=== PATIENT | male | born 1955 | race Caucasian/White ===

== ENCOUNTER 2017-03-27 05:34 | Outpatient (CLI) | payer BC, OTHER ==
[~2017-03-27] VITALS: Ht 177.8 cm; Wt 104.3 kg
[2017-03-27] MEDS ORDERED: RED600TA PO (12:20)
[2017-03-27] MEDS ORDERED: ASCO500T6 PO (12:20)
[2017-03-27] MEDS ORDERED: ASPI-999 PO (12:20)
[2017-03-27] MEDS ORDERED: OMG1KC PO (12:20)
[2017-03-27] MEDS ORDERED: MULT1CAP27 PO (12:20)
[2017-03-27] MEDS ORDERED: AMLO5TAB2 PO (12:20)
== END 2017-03-27 12:42 ==
LOC: PREOP 05:34
PROVIDERS: ATTEND Surgery
DX: Z01.818 Encounter for other preprocedural examination (principal); Z12.11 Encounter for screening for malignant neoplasm of colon

== ENCOUNTER 2017-03-28 09:09 | Day surgery (SDC) | payer BC, OTHER ==
[~2017-03-28] VITALS: Ht 177.8 cm; Wt 104.3 kg
[~2017-03-28 09:09] MED LIST: AMLO5TAB2 PO; ASCO500T6 PO; ASPI-999 PO; MULT1CAP27 PO; OMG1KC PO; RED600TA PO
[2017-03-28 09:27] VITALS: BP 145/103
[2017-03-28] MEDS ORDERED: NALOXONE 0.4 MG/ML 1 ML (NARCAN) VIAL IVP PRN (09:30)
[2017-03-28] MEDS ORDERED: FLUMAZENIL (ROMAZICON) 0.1 MG/ML 5 ML VIAL INJ PRN (09:30)
[2017-03-28] MEDS ORDERED: NS IV 500 ML 500 ML IV PRN (09:30)
[2017-03-28] MEDS ORDERED: fentaNYL INJECTION 100 MCG/2 ML AMP ONE ×2 (11:09)
[2017-03-28] MEDS ORDERED: MIDAZOLAM 2 MG/2 ML (VERSED) VIAL ONE ×4 (11:10)
--- NOTE | 2017-03-28 11:14 | Conscious Sedation/ASA ---
Conscious Sedation Pre-Proced ASA Class: 2 Airway Mallampati Classification: ([place] appropriate class) I. II. III, IV Lungs Heart ASA score ASA 1: a normal healthy patient ASA 2: a patient with a mild systemic disease (mid diabetes, controlled hypertension, obesity ASA 3: a patient with a severe systemic disease that limits activity (angina , COPD, prior Myocardial infarction) ASA 4: a patient with an incapacitating disease that is a constant threat to life (CHF, renal failure) ASA 5: a moribund patient not expected to survive 24 hrs. (ruptured aneurysm) ASA 6: a declared brain patient whose organs are being harvested. For emergent operations, add the letter E after the classification Grade 2 Sedation Plan: Discussed options with patient/fam Note The patient is an appropriate candidate to undergo the planned procedure, sedation, and anesthesia. The patient immediately re-assessed prior to indication. MAK WATSON MD March 28, 2017 11:14 am
[2017-03-28] MEDS: fentaNYL INJECTION 100 MCG/2 ML AMP IVP PRN ×2 (11:17→11:25)
[2017-03-28] MEDS: MIDAZOLAM 2 MG/2 ML (VERSED) VIAL IVP PRN ×2 (11:19→11:23)
--- NOTE | 2017-03-28 11:37 | Endoscopy Procedure Report ---
Endoscopy Report Date: March 28, 2017 Preoperative Diagnosis: sscreening. Family history Study Performed: Colonoscopy Procedure Instrument: Colonoscope Endo Procedure/Findings Findings 1.: Diverticulosis Recommendations: Recommendations: 1.: Colonscopy in 5 years Copy Copies To 1: DAVIS CRUZ XAVIER M MD March 28, 2017 11:37 am
--- NOTE | 2017-03-28 11:38 | Discharge Inst-Simple/Standard ---
Discharge Inst-Standard Discharge Medications New, Converted or Re-Newed RX: Other Patient Instructions/Follow Up Plan of Care/Instructions/FU: rrepeat colonoscopy in 5 years Activity as Tolerated: Yes Discharge Diet: No Restrictions MAK WATSON MD March 28, 2017 11:38 am
[2017-03-28 12:00] VITALS: BP 131/69
[2017-03-28 12:22] VITALS: BP 128/79
[2017-03-28 12:26] VITALS: BP 128/79
--- NOTE | 2017-03-29 05:27 | OPERATIVE REPORT ---
DATE OF SERVICE: 03/28/2017 PROCEDURE: Screening colonoscopy. SURGEON: Mak Watson MD INDICATION OF PROCEDURE: This gentleman came in for a screening colonoscopy. He had reported a family history of colon cancer in his brother. Informed consent was obtained after reviewing the procedure in detail. DESCRIPTION OF PROCEDURE: He was placed in left lateral decubitus position and his vital signs were monitored. Conscious sedation was achieved using Versed and fentanyl. Digital rectal examination was unremarkable. The colonoscope was then introduced through the rectum and advanced all the way up to the cecum. The scope was then withdrawn slowly and the mucosa examined in a systematic fashion. FINDINGS: Very few scattered sigmoid diverticula. No polyps were found. He tolerated the procedure well and was taken back to the nursing area in a stable condition. IMPRESSION: Screening colonoscopy. No polyps. Positive family history. Recommend repeating in 5 years. Job ID: [id number] DocumentID: [id number] Dictated Date: 03/28/2017 11:33:18 Chute Man Date: 03/29/2017 05:00:58 Dictated By: MAK WATSON MD MTDD
== END 2017-03-28 11:28 | disposition home or self-care (01) ==
LOC: ENDO 09:09
PROVIDERS: ATTEND Surgery
DX: Z12.11 Encounter for screening for malignant neoplasm of colon (principal); Z80.0 Family history of malignant neoplasm of digestive organs; K57.30 Diverticulosis of large intestine without perforation or abscess without bleeding

== ENCOUNTER → 2018-04-08 | Outpatient (CLI) | payer BC ==
--- NOTE | 2018-04-08 10:25 | Diagnostic Imaging Report ---
Clinical indication: Patient with carotid artery stenosis. Comparison: None Exam: Real-time carotid Doppler duplex imaging is performed bilaterally. Peak systolic velocity, ICA/CCA peak systolic ratio, spectral analysis, and vascular morphology are studied. Findings: ARTERY VELOCITY Right Left CCA 1.05 m/s 0.89 m/s ICA 1.05 m/s 1.79 m/s ECA 1.21 m/s 0.97 m/s ICA/CCA 1.0 2.0 VERT.ART Antegrade Antegrade There is prominent area of heterogeneous plaque with associated vascular narrowing involving the proximal and mid left ICA. There are also elevated velocities involving the proximal and mid cervical left ICA measuring 1.57 m/s and 1.79 m/s, respectively. Impression: 1: There is atherosclerotic disease of the proximal and mid cervical left ICA with elevated velocities suggesting 50-69% stenosis. 2: The remainder of the carotid arteries show no significant stenosis. Dictated by: Dictated on workstation # [id number]
== END ==
LOC: RAD 08:36
PROVIDERS: ATTEND Internal Medicine
DX: I65.23 Occlusion and stenosis of bilateral carotid arteries (principal)
CPT/HCPCS: 93880

== ENCOUNTER → 2018-05-29 | Outpatient (CLI) | payer BC ==
[~2018-05-29] VITALS: Ht 177.8 cm; Wt 104.3 kg
[~2018-05-29] MED LIST changes: +CATHETER FLUSH 10 ML SYR IV PRN
[2018-05-29 08:18] VITALS: BP 146/73
--- NOTE | 2018-05-29 13:21 | STRESS TEST ---
DATE OF SERVICE: 05/29/2018 RESTING AND POST EXERCISE TECHNETIUM-99M TETROFOSMIN SPECT CT IMAGING ORDERING PHYSICIAN: Dr. Pickett. PRIMARY PHYSICIAN: Dr. Pickett. CLINICAL DIAGNOSIS: Chest discomfort. Baseline images were carried out after injection of 10.29 mCi of technetium-99m Tetrofosmin. Subsequently, exercise was carried out on a treadmill under Dr. Pickett's supervision and the electrocardiographic and the exercise portion of the study is reported separately by Dr Pickett. After the patient has attained target heart rate, 32.2 mCi of technetium-99m Tetrofosmin were injected and the exercise was continued for another minute. Review of images at rest and following stress indicates a small basal inferior perfusion defect that is transient. Gated images show normal global left ventricular systolic function with normal regional wall motion. No significant regional wall motion abnormalities were identified. Left ventricular ejection fraction is 70%. Left ventricular end-diastolic volume is 65 mL. TID is absent (0.97). CONCLUSIONS: 1. This study is indicative of a small amount of basal inferior ischemia. 2. No significant regional wall motion abnormality is seen. 3. Global left ventricular systolic function is normal with an ejection fraction of 70%. Job ID: [id number] DocumentID: [id number] Dictated Date: 05/29/2018 09:52:14 Court Commissioner Date: 05/29/2018 13:20:19 Dictated By: TOVA ALMARAZ MD, MA, FACP, FACC, MTDD
== END ==
LOC: CARD 06:34
PROVIDERS: ATTEND Internal Medicine
DX: R07.9 Chest pain, unspecified (principal)
CPT/HCPCS: 78452; 93017

== ENCOUNTER 2020-08-17 08:24 | Inpatient (IN) | payer BC ==
[2020-08-17] VITALS (7 sets, daily range): BP systolic 124–196; BP diastolic 74–135
[~2020-08-17] VITALS: Ht 180 cm; Wt 97.0 kg
[~2020-08-17 08:24] MED LIST changes: -AMLO5TAB2 PO; +AMLO5TAB9 PO; +ASCO500T17 PO; -ASCO500T6 PO; -CATHETER FLUSH 10 ML SYR IV PRN
[2020-08-17] MEDS ORDERED: LACTATED RINGERS 1,000 ML IV SCH (08:44)
[2020-08-17] MEDS ORDERED: ACETAMINOPHEN 325 MG TABLET PO ONE (08:45)
[2020-08-17] MEDS ORDERED: ONDANSETRON 4 MG/2 ML (SDV) Z0FRAN IV ONE (08:45)
--- NOTE | 2020-08-17 08:51 | ED Respiratory ---
General Chief Complaint: Respiratory Problems Stated Complaint: COVID+ Source: patient Exam Limitations: no limitations History of Present Illness Date Seen by Provider: Aug 17, 2020 Time Seen by Provider: 08:30 Initial Comments The patient presents to the ER by private conveyance with chief complaint of intractable nausea and vomiting worse over the past several days, starting a week ago. He was tested positive for COVID 19 7 days ago and has been symptomatic for 10 days. He has sick contacts. He has not seen his doctor nor started anything for nausea or symptoms. He did get started on Decadron and has been using Tylenol and Motrin PM. He does not have a history of diabetes, coronary disease, history of blood clots, hyperlipidemia or smoking. He does dip and follows with Dr. Cruz occasionally for his hypertension. He says he was able to eat yesterday and keep it down for some time but has not been able to keep fluids down very well. His oxygen sats were 91-94% last week when he was at the clinic. He does not require oxygen at baseline nor does he have a history of COPD/asthma. He denies pain, dysuria diarrhea or constipation. Allergies and Home Medications Allergies Coded Allergies: No Known Drug Allergies (Verified , 03/28/17) Home Medications Amlodipine Besylate 5 Mg Tablet, 5 MG PO DAILY, (Reported) Ascorbic Acid 500 Mg Tablet, 500 MG PO DAILY, (Reported) Aspirin 81 Mg Tab.chew, 81 MG PO DAILY, (Reported) Multivitamin 1 Each Capsule, 1 EACH PO DAILY, (Reported) [place] 3 Polyunsat Fatty Acids 1,000 Mg Cap, 1,000 MG PO DAILY, (Reported) Red Yeast Rice 600 Mg Tablet, 600 MG PO DAILY, (Reported) Patient Home Medication List Home Medication List Reviewed: Yes Review of Systems Review of Systems Constitutional: chills, fever, malaise, weakness EENTM: No hearing loss, No ear pain Respiratory: cough, phlegm (clear,), short of breath; No wheezing Cardiovascular: No chest pain, No Hx of Intervention, No palpitations, No syncope, No vascular heart diseas Gastrointestinal: No abdominal pain, No constipation, No diarrhea; nausea, vomiting Genitourinary: No discharge, No dysuria Musculoskeletal: No back pain, No joint pain All Other Systems Reviewed Negative Unless Noted: Yes Past Vyiycfc-Vtayex-Wnshnp Hx Patient Social History Alcohol Use: Occasionally Uses Recreational Drug Use: No Smoking Status: Never a Smoker Type Used: Smokeless Tobacco Recent Hopitalizations: No Seasonal Allergies Seasonal Allergies: No Past Medical History Surgeries: Yes (ING hernia) Respiratory: No Cardiac: Yes Hypertension Neurological: No Genitourinary: No Gastrointestinal: No Musculoskeletal: No Endocrine: No HEENT: No Cancer: No Psychosocial: No Integumentary: No Blood Disorders: No Physical Exam Vital Signs - First Documented 08/17/20 08/17/20 08:40 08:43 Temp 36.5 Pulse 74 Resp 18 B/P (MAP) 135/86 (102) Pulse Ox 95 O2 Delivery Nasal Cannula O2 Flow Rate 2.00 Capillary Refill : Height: 5'10.00" Weight: 230lbs. 0.0oz. [id number]; 33.0 BMI Method: General Appearance: WD/WN, moderate distress Eyes: Bilateral Eye Normal Inspection, Bilateral Eye PERRL, Bilateral Eye EOMI HEENT: PERRL/EOMI, normal ENT inspection; No pharynx normal (Mildly dry mucosa) Neck: full range of motion, normal inspection Respiratory: no accessory muscle use, respiratory distress (mild to moderate with respiratory rate between 25 and 30. Oxygen saturations 91-96% at rest), wheezing (faint expiratory right side) Cardiovascular: normal peripheral pulses, regular rate, rhythm Gastrointestinal: normal bowel sounds, non tender, soft Extremities: non-tender, normal inspection, normal capillary refill Neurologic/Psychiatric: alert, oriented x 3 Skin: normal color, warm/dry Focused Exam Sepsis Stage: Sepsis Possible Source: Pulmonary Lactate Level 08/17/20 09:00: Lactic Acid Level 2.54*H Time of Focused Exam: 10:02 Respiratory: Lungs Clear, Normal Breath Sounds, No Accessory Muscle Use, Respiratory Distress (mild, 4 L by nasal cannula keeping his sats in the mid to upper 90s.) Cardiovascular: Regular Rate, Rhythm, No Edema, Normal Peripheral Pulses Capillary Refill: Less Than 3 Seconds Peripheral Pulses: 2+ Radial Pulses (R), 2+ Radial Pulses (L) Skin: normal color, warm/dry, cyanosis Lactic Acid Level Laboratory Tests Test 08/17/20 09:00 Lactic Acid Level 2.54 MMOL/L (0.50-2.00) *H Within 3hrs of presentation: Admin fluids (continue a dosing of 1 L secondary to COVID-19 status), Admin ABX, Blood cultures prior to ABX's, Focus exam, Lactate level Progress/Results/Core Measures Suspected Sepsis SIRS Temperature: Pulse: Respiratory Rate: Laboratory Tests 08/17/20 08:40: White Blood Count 17.7H Blood Pressure / Mean: 08/17/20 09:00: Lactic Acid Level 2.54*H Laboratory Tests 08/17/20 08:40: Creatinine 1.31H, INR Comment 1.0, Platelet Count 412H, Total Bilirubin 0.8 Results/Orders Lab Results Laboratory Tests Test 08/17/20 08:40 08/17/20 09:00 Range/Units White Blood Count 17.7 H 4.3-11.0 10^3/uL Red Blood Count 4.85 4.30-5.52 10^6/uL Hemoglobin 15.2 13.3-17.7 g/dL Hematocrit 45 40-54 % Mean Corpuscular Volume 92 80-99 fL Mean Corpuscular Hemoglobin 31 25-34 pg Mean Corpuscular Hemoglobin Concent 34 32-36 g/dL Red Cell Distribution Width 12.8 10.0-14.5 % Platelet Count 412 H 130-400 10^3/uL Mean Platelet Volume 11.0 9.0-12.2 fL Immature Granulocyte % (Auto) 3 % Neutrophils (%) (Auto) 73 42-75 % Lymphocytes (%) (Auto) 17 12-44 % Monocytes (%) (Auto) 7 0-12 % Eosinophils (%) (Auto) 0 0-10 % Basophils (%) (Auto) 0 0-10 % Neutrophils # (Auto) 12.9 H 1.8-7.8 10^3/uL Lymphocytes # (Auto) 3.0 1.0-4.0 10^3/uL Monocytes # (Auto) 1.2 H 0.0-1.0 10^3/uL Eosinophils # (Auto) 0.0 0.0-0.3 10^3/uL Basophils # (Auto) 0.0 0.0-0.1 10^3/uL Immature Granulocyte # (Auto) 0.6 H 0.0-0.1 10^3/uL Neutrophils % (Manual) 69 % Lymphocytes % (Manual) 23 % Monocytes % (Manual) 7 % Eosinophils % (Manual) 1 % Basophils % (Manual) 0 % Band Neutrophils 0 % Blood Morphology Comment NORMAL Prothrombin Time 13.1 12.2-14.7 SEC INR Comment 1.0 0.8-1.4 Activated Partial Thromboplast Time 25 24-35 SEC D-Dimer 2.44 H 0.00-0.49 UG/ML Blood Gas Puncture Site RR Blood Gas Patient Temperature 97.8 Arterial Blood pH 7.62 *H 7.37-7.43 Arterial Blood Partial Pressure CO2 14 *L 35-45 MMHG Arterial Blood Partial Pressure O2 76 L 79-93 MMHG Arterial Blood HCO3 15 *L 23-27 MMOL/L Arterial Blood Total CO2 15.4 L 21.0-31.0 MMOL/L Arterial Blood Oxygen Saturation 97 94-100 % Arterial Blood Base Excess -6.4 L -2.5-2.5 MMOL/L Alexis Test YES-POS Blood Gas Ventilator Setting NO Blood Gas Inspired Oxygen RA Sodium Level 138 135-145 MMOL/L Potassium Level 4.1 3.6-5.0 MMOL/L Chloride Level 103 98-107 MMOL/L Carbon Dioxide Level 20 L 21-32 MMOL/L Anion Gap 15 H 5-14 MMOL/L Blood Urea Nitrogen 25 H 7-18 MG/DL Creatinine 1.31 H 0.60-1.30 MG/DL Estimat Glomerular Filtration Rate 55 BUN/Creatinine Ratio 19 Glucose Level 102 70-105 MG/DL Calcium Level 9.3 8.5-10.1 MG/DL Corrected Calcium 9.2 8.5-10.1 MG/DL Phosphorus Level 2.2 L 2.3-4.7 MG/DL Magnesium Level 2.2 1.6-2.4 MG/DL Total Bilirubin 0.8 0.1-1.0 MG/DL Aspartate Amino Transf (AST/SGOT) 51 H 5-34 U/L Alanine Aminotransferase (ALT/SGPT) 95 H 0-55 U/L Alkaline Phosphatase 63 40-136 U/L Troponin I < 0.028 <0.028 NG/ML C-Reactive Protein High Sensitivity 0.95 H 0.00-0.50 MG/DL Total Protein 7.7 6.4-8.2 GM/DL Albumin 4.1 3.2-4.5 GM/DL Procalcitonin 0.05 <0.10 NG/ML Lactic Acid Level 2.54 *H 0.50-2.00 MMOL/L My Orders Orders - ROSARIO,TARI J Vital Signs: Every 4 Hours (Or (08/17/20 08:44) Monitor-Rhythm Ecg Trace Only (08/17/20 08:44) Cbc With Automated Diff (08/17/20 08:44) Comprehensive Metabolic Panel (08/17/20 08:44) Hs C Reactive Protein (08/17/20 08:44) Troponin I (08/17/20 08:44) Lactic Acid Analyzer (08/17/20 08:44) Protime With Inr (08/17/20 08:44) Partial Thromboplastin Time (08/17/20 08:44) Fibrin Degradation Products (08/17/20 08:44) Ekg Tracing (08/17/20 08:44) Chest 1 View, Ap/Pa Only (08/17/20 08:44) Arterial Blood Gas (08/17/20 08:44) Lactated Ringers (Lr 1000 Ml Iv Solution (08/17/20 08:44) Acetaminophen Tablet/Caplet (Tylenol T (08/17/20 08:45) Ondansetron Injection (Zofran Injectio (08/17/20 08:45) Covid-19 External Lab Results (08/17/20 08:44) Procalcitonin (Pct) (08/17/20 08:44) O2 (08/17/20 08:44) Dexamethasone Injection (Decadron Injec (08/17/20 09:00) Phosphorus (08/17/20 08:51) Magnesium (08/17/20 08:51) Rx-Albuterol Inhaler (Rx-Ventolin Hfa) (08/17/20 08:53) Manual Differential (08/17/20 08:40) Lorazepam Injection (Ativan Injection) (08/17/20 09:30) Ondansetron Injection (Zofran Injectio (08/17/20 09:30) Potassium Phosphate Inj (Potassium Phosp (08/17/20 09:45) Blood Culture (08/17/20 10:21) Enoxaparin Injection (Lovenox Injection) (08/17/20 10:30) Ceftriaxone For Iv Use (Rocephin For I (08/17/20 10:30) Azithromycin Injection (Zithromax Inject (08/17/20 10:30) Medications Given in ED Current Medications Medications Dose Ordered Sig/Grant Route Start Time Stop Time Status Last Admin Dose Admin Acetaminophen 650 mg ONCE ONCE PO 08/17/20 08:45 08/17/20 08:49 DC 08/17/20 09:09 650 MG Dexamethasone Sodium Phosphate 4 mg ONCE ONCE IV 08/17/20 09:00 08/17/20 09:01 DC 08/17/20 09:09 4 MG Lorazepam 2 mg ONCE ONCE IVP 08/17/20 09:30 08/17/20 09:31 DC 08/17/20 09:22 2 MG Ondansetron HCl 4 mg ONCE ONCE IV 08/17/20 08:45 08/17/20 08:49 DC 08/17/20 09:09 4 MG Ondansetron HCl 4 mg ONCE ONCE IVP 08/17/20 09:30 08/17/20 09:31 DC 08/17/20 09:22 4 MG Potassium Phosphate 15 mm/ Sodium Chloride 255 ml @ 102 mls/hr ONCE ONCE IV 08/17/20 09:45 08/17/20 12:14 08/17/20 10:17 102 MLS/HR Vital Signs/I&O 08/17/20 08/17/20 08:40 08:43 Temp 36.5 Pulse 74 Resp 18 B/P (MAP) 135/86 (102) Pulse Ox 95 95 O2 Delivery Nasal Cannula O2 Flow Rate 2.00 Capillary Refill : Progress Note #1: Time: 08:56 Progress Note Patient's ABG reveals he's blowing off all of his CO2 and is alkalotic poor probably owing to his relative hypoxia versus anxiety versus both. We'll give him some Zofran and fluids and put him on 2 L by nasal cannula and see if this doesn't improve his symptoms. Tylenol 650 mg. His symptoms are related to COVID- 19 so we are not pursuing a full septic workup. He is not tachycardic or febrile. Progress Note #2: Time: 09:55 Progress Note The patient is much more relaxed and now breathing 16 breaths per minute on the Ativan. Oxygen sats got down to 88% on 2 L so we turned him up to 4 L by nasal cannula and his oxygen saturations are in the mid 90s. He has some patchy infiltrates which may be related to COVID-19 versus opportunistic infection. White count 17,000. He is quite dehydrated with an elevated BNP and creatinine which is probably why his lactate is elevated. ECG Initial ECG Impression Date: Aug 17, 2020 Initial ECG Impression Time: 08:45 Initial ECG Rate: 66 Initial ECG Rhythm: Normal Sinus Initial ECG Intervals: Normal Initial ECG Impression: Normal Initial ECG Comparisson: No Previous ECG Available Comment Normal sinus rhythm without clinically relevant ST elevation or depression. Diagnostic Imaging Diagonstic Imaging: Xray Plain Films/CT/US/NM/MRI: chest Comments NAME: LORAINE [facility]ZOLA [facility] REC#: [id number] PT STATUS: REG ER : 1955 PHYSICIAN: TARI PONCE MD ADMIT DATE: 08/17/20/ER Draft Date of Exam:08/17/20 CHEST 1 VIEW, AP/PA ONLY INDICATION: Shortness of air. FINDINGS: There are mild patchy bilateral vague pulmonary infiltrates in the mid to lower thirds of the lungs. I have no priors for comparison and some of this may be chronic. No obscuration of the heart borders or diaphragm. The lung volumes are normal. There is no evidence for pleural fluid. IMPRESSION: Limited by the lack of comparison. There is suspicion for vague patchy bilateral pulmonary infiltrates involving the mid to lower lungs without failure pattern or associated pleural fluid. Dictated on workstation # [id number] Dict: 08/17/20 0942 Trans: 08/17/20 0945 [id number] Interpreted by: ELY GARCIA Electronically signed by: Reviewed: Reviewed by Me (1v) Departure Communication (Admissions) Time/Spoke to Admitting Phy: 10:00 Dr Cruz: She agrees to admit the patient to cardiac stepdown for oxygen, antib iotics and consultation with pulmonology. Time/Spoke to Consulting Phy: 10:10 Dr. Noyola agrees to consult on the patient and would like Lovenox 40 mg subcutaneous daily, Decadron 6 mg IV daily, Rocephin and azithromycin. Impression Primary Impression: COVID-19 Additional Impressions: Intractable nausea and vomiting Panic anxiety syndrome Dehydration Hypophosphatemia Pneumonia Qualified Codes: J18.9 - Pneumonia, unspecified organism Sepsis Qualified Codes: A41.9 - Sepsis, unspecified organism; R65.20 - Severe sepsis without septic shock; J96.01 - Acute respiratory failure with hypoxia Disposition: 09 ADMITTED INPATIENT Condition: Stable Admissions Decision to Admit Reason: Admit from ER (General) Decision to Admit/Date: Aug 17, 2020 Time/Decision to Admit Time: 09:45 Departure-Patient Inst. Referrals: DAVIS CRUZ DO (PCP/Family) Primary Care Physician TARI PONCE Aug 17, 2020 08:51
[2020-08-17] MEDS ORDERED: RX-ALBUTEROL INHALER (VENTOLIN HFA) 18 GM IH STA (08:53)
[2020-08-17 08:54] LABS: ABG BASE EXCESS -6.4 MMOL/L (-2.5-2.5); ABG OXYGEN SATURATION 97 % (94-100); ABG PO2 76 MMHG (79-93); ABG TCO2 15.4 MMOL/L (21.0-31.0); BASOPHILS % (AUTO) 0 % (0-10); EOSINOPHILS % (AUTO) 0 % (0-10); HEMATOCRIT 45 % (40-54); HEMOGLOBIN 15.2 g/dL (13.3-17.7); LYMPHOCYTES % (AUTO) 17 % (12-44); MEAN CORPUSCULAR HEMOGLOBIN 31 pg (25-34); MEAN CORPUSCULAR HGB CONC 34 g/dL (32-36); MEAN CORPUSCULAR VOLUME 92 fL (80-99); MONOCYTES # (AUTO) 1.2 10^3/uL (0.0-1.0); MONOCYTES % (AUTO) 7 % (0-12); NEUTROPHILS # (AUTO) 12.9 10^3/uL (1.8-7.8); NEUTROPHILS % (AUTO) 73 % (42-75); PLATELET COUNT 412 10^3/uL (130-400); WHITE BLOOD COUNT 17.7 10^3/uL (4.3-11.0)
[2020-08-17 08:57] LABS: ABG PH 7.62 (7.37-7.43); ALBUMIN 4.1 GM/DL (3.2-4.5)
[2020-08-17 08:58] LABS: ABG PCO2 14 MMHG (35-45); ALLENS TEST YES-POS; CHLORIDE 103 MMOL/L (98-107); INSPIRED O2 RA; POTASSIUM 4.1 MMOL/L (3.6-5.0); SODIUM 138 MMOL/L (135-145); VENTILATOR NO
[2020-08-17 08:59] LABS: CALCIUM 9.3 MG/DL (8.5-10.1)
[2020-08-17 09:00] LABS: GLUCOSE 102 MG/DL (70-105); PATIENT TEMP 97.8; TOTAL PROTEIN 7.7 GM/DL (6.4-8.2)
[2020-08-17 09:01] LABS: CARBON DIOXIDE 20 MMOL/L (21-32)
[2020-08-17 09:02] LABS: BILIRUBIN,TOTAL 0.8 MG/DL (0.1-1.0)
[2020-08-17 09:03] LABS: ALKALINE PHOSPHATASE 63 U/L (40-136)
[2020-08-17 09:04] LABS: CREATININE SERUM 1.31 MG/DL (0.60-1.30); GFR ESTIMATED 55
[2020-08-17 09:05] LABS: BUN/CREATININE RATIO 19
[2020-08-17 09:07] LABS: ALANINE AMINOTRANSFERASE 95 U/L (0-55)
[2020-08-17 09:13] LABS: FIBRIN DEGRADATION PRODUCTS 2.44 UG/ML (0.00-0.49); PROTHROMBIN TIME PATIENT 13.1 SEC (12.2-14.7)
[2020-08-17 09:18] LABS: MAGNESIUM 2.2 MG/DL (1.6-2.4); PHOSPHORUS 2.2 MG/DL (2.3-4.7)
[2020-08-17 09:19] LABS: BAND NEUTROPHILS 0 %; BASOPHILS % (MANUAL) 0 %; EOSINOPHILS % (MANUAL) 1 %; LYMPHOCYTES % (MANUAL) 23 %; MONOCYTES % (MANUAL) 7 %; NEUTROPHILS % (MANUAL) 69 %; RBC MORPH NORMAL
--- NOTE | 2020-08-17 09:25 | NUR ---
pt 02 sat down to 86% on 2 L NC at this time after ativan administration. Pt is arousable by verbal stimuli and opens eyes when asked. Pt O2 increased to 4 L NC at this time per Dr. Savage orders. 0926- Pt 02 sat 95% on 4 L NC at this time. Will continue to monitor.
[2020-08-17] MEDS ORDERED: ONDANSETRON 4 MG/2 ML (SDV) Z0FRAN IVP ONE (09:30)
[2020-08-17] MEDS ORDERED: LORazepam INJ 2 MG/ML (ATIVAN) VIAL IVP ONE (09:30)
[2020-08-17] MEDS ORDERED: POTASSIUM PHOSPHATE INJ 15 MM in NS (IVPB) 250 ML IV ONE (09:45)
--- NOTE | 2020-08-17 09:45 | Diagnostic Imaging Report ---
INDICATION: Shortness of air. FINDINGS: There are mild patchy bilateral vague pulmonary infiltrates in the mid to lower thirds of the lungs. I have no priors for comparison and some of this may be chronic. No obscuration of the heart borders or diaphragm. The lung volumes are normal. There is no evidence for pleural fluid. IMPRESSION: Limited by the lack of comparison. There is suspicion for vague patchy bilateral pulmonary infiltrates involving the mid to lower lungs without failure pattern or associated pleural fluid. Dictated by: Dictated on workstation # [id number]
[2020-08-17] MEDS ORDERED: AZITHROMYCIN INJECTION 500 MG in NS (IVPB) 250 ML IV ONE ×2 (10:30→14:30)
[2020-08-17] MEDS ORDERED: ENOXAPARIN 40 MG/0.4 ML (LOVENOX) SYR SC ONE (10:30)
[2020-08-17] MEDS ORDERED: cefTRIAXone FOR IV USE 1,000 MG in WATER (STERILE) FOR INJECTION 10 ML IV ONE ×2 (10:30→14:30)
--- NOTE | 2020-08-17 10:40 | NUR ---
pt informed of admission progress and estimated wait time for admission. Pt verbalizes no new needs at this time. Call light within reach.
--- NOTE | 2020-08-17 11:28 | History & Physical-Hospitalist ---
History of Present Illness HPI/Chief Complaint CC: SOB with nausea and vomiting HPI: This is a 71yoWM clinic pt of mine with a past medical history of hypertension who presents to the ER after severe nausea and vomiting after a diagnosis of Covid-19 last week. He is also becoming hypoxia and his CXR shows evidence of viral pneumonitis from Covid-19. At this current time pt is very anxious. He received some Ativan and at this current time Dr. Noyola has been consulted and will be managing him closely on cardiac step down. Source: patient, RN/MD Exam Limitations: no limitations Date Seen 08/17/20 Time Seen by a Provider: 11:00 Attending Physician Miladis Pickett DO PCP Miladis Pickett DO Referring Physician Date of Admission Aug 17, 2020 at 10:31 Home Medications & Allergies Home Medications Reviewed patient Home Medication Reconciliation performed by pharmacy medication reconciliations installation and repair technician and/or nursing. Patients Allergies have been reviewed. Allergies Allergies Coded Allergies No Known Drug Allergies (Verified03/28/17) Past Shkqrlv-Cowefk-Ylsojf Hx Past Med/Social Hx: Reviewed Nursing Past Med/Soc Hx, Reviewed and Corrections made Patient Social History Marrital Status: Employed/Student: retired Alcohol Use: Denies Use Recreational Drug Use: No Smoking Status: Never a Smoker Type Used: Smokeless Tobacco Recent Foreign Travel: No Contact w/other who traveled: No Recent Hopitalizations: No Recent Infectious Disease Expo: No Seasonal Allergies Seasonal Allergies: No Past Medical History Cardiac: Hypertension History of Blood Disorders: No Review of Systems Constitutional: see HPI, malaise, weakness Respiratory: cough, dyspnea on exertion, short of breath Gastrointestinal: nausea, vomiting Physical Exam Physical Exam Vital Signs Vital Signs - First Documented 08/17/20 08/17/20 08:40 08:43 Temp 36.5 Pulse 74 Resp 18 B/P (MAP) 135/86 (102) Pulse Ox 95 O2 Delivery Nasal Cannula O2 Flow Rate 2.00 Capillary Refill : Less Than 3 Seconds Height, Weight, BMI Height: 5'10.00" Weight: 230lbs. 0.0oz. [id number]; 31.00 BMI Method: General Appearance: Anxious, Mild Distress Eyes: Right Eye Normal Inspection, Right Eye PERRL HEENT: PERRL/EOMI, Normal ENT Inspection, Pharynx Normal, Moist Mucous Membranes, Other (dry mm) Neck: Full Range of Motion, Normal Inspection, Non Tender Respiratory: Chest Non Tender, Lungs Clear, Normal Breath Sounds, No Accessory Muscle Use, No Respiratory Distress, Decreased Breath Sounds Cardiovascular: Regular Rate, Rhythm, No Edema, No Gallop, No JVD, No Murmur, Normal Peripheral Pulses Gastrointestinal: Normal Bowel Sounds, No Organomegaly, No Pulsatile Mass, Non Tender, Soft Back: Normal Inspection, No CVA Tenderness, No Vertebral Tenderness Extremity: Normal Capillary Refill, Normal Inspection, Normal Range of Motion, Non Tender, No Calf Tenderness, No Pedal Edema Neurologic/Psychiatric: Alert, Oriented x3, No Motor/Sensory Deficits, Normal Mood/Affect, surface mount technology operator II-XII Norm as Tested Skin: Normal Color, Warm/Dry Lymphatic: No Adenopathy Results Results/Procedures Labs Laboratory Tests 08/17/20 08:40 Patient resulted labs reviewed. Assessment/Plan Admission Diagnosis Assessment: COVID-19 pneumonia Hypoxia Acute renal failure Profound dehydration Nausea and vomiting Hypertension Plan: IV fluids ICU-3 Dr. Noyola consult Monitor oxygen level Admission Status: Inpatient Order (span 2 midnights) Reason for Inpatient Admission: covid Diagnosis/Problems Diagnosis/Problems (1) COVID-19 Status: Acute (2) Intractable nausea and vomiting Status: Acute (3) Panic anxiety syndrome Status: Acute (4) Dehydration Status: Acute (5) Pneumonia Status: Acute Qualifiers: Pneumonia type: due to unspecified organism Laterality: bilateral Lung location: unspecified part of lung Qualified Codes: J18.9 - Pneumonia, unspecified organism (6) Sepsis Status: Acute Qualifiers: Sepsis type: sepsis due to unspecified organism Sepsis acute organ dysfunction status: with acute organ dysfunction Severe sepsis acute organ dysfunction type: acute respiratory failure Acute respiratory failure type: with hypoxia Severe sepsis shock status: without septic shock Qualified Codes: A41.9 - Sepsis, unspecified organism; R65.20 - Severe sepsis without septic shock; J96.01 - Acute respiratory failure with hypoxia MILADIS PICKETT DO Aug 17, 2020 11:28
[2020-08-17] MEDS ORDERED: RT-ALBUTEROL INHALER HFA (VENTOLIN HFA) 18 GM IH PRN (12:30)
[2020-08-17] MEDS ORDERED: IBUPROFEN 800 MG (MOTRIN) TAB PO PRN (12:30)
[2020-08-17] MEDS ORDERED: AZITHROMYCIN 500 MG/NS 250 ML IVPB IV SCH ×2 (12:30)
[2020-08-17] MEDS ORDERED: ACETAMINOPHEN 325 MG TABLET PO PRN (12:30)
[2020-08-17] MEDS ORDERED: CATHETER FLUSH 10 ML SYR IV PRN (12:45)
[2020-08-17] MEDS ORDERED: ANTACID SUSP 30 ML UDC (MYLANTA) PO PRN (12:45)
[2020-08-17] MEDS ORDERED: EPINEPHrine 1 MG INJECTION 4 MG in NS (IVPB) 248 ML IV SCH (12:45)
[2020-08-17] MEDS: VASOPRESSIN INJECTION 20 UNIT in NS (IVPB) 100 ML IV SCH (13:07)
[2020-08-17] MEDS: NOREPINEPHRINE 4 MG/250 ML 250 ML IV SCH ×2 (13:07→20:45)
--- NOTE | 2020-08-17 13:34 | Pulmonary Consultation ---
History of Present Illness History of Present Illness Date Seen by Provider: Aug 17, 2020 Time Seen by Provider: 13:32 Date of Admission Allergies and Home Medications Allergies Coded Allergies: No Known Drug Allergies (Verified , 03/28/17) Home Medications Amlodipine Besylate 5 Mg Tablet, 5 MG PO DAILY, (Reported) Ascorbic Acid 500 Mg Tablet, 500 MG PO DAILY, (Reported) Aspirin 81 Mg Tab.chew, 81 MG PO DAILY, (Reported) Multivitamin 1 Each Capsule, 1 EACH PO DAILY, (Reported) [place] 3 Polyunsat Fatty Acids 1,000 Mg Cap, 1,000 MG PO DAILY, (Reported) Red Yeast Rice 600 Mg Tablet, 600 MG PO DAILY, (Reported) Past [id number] Hx Past Med/Social Hx: Reviewed Nursing Past Med/Soc Hx, Reviewed and Corrections made Patient Social History Alcohol Use: Denies Use Recreational Drug Use: No Smoking Status: Never a Smoker Type Used: Smokeless Tobacco Recent Foreign Travel: No Contact w/Someone Who Travel: No Recent Infectious Disease Expo: No Recent Hopitalizations: No Physical Abuse: No Sexual Abuse: No Mistreated: No Fear: No Seasonal Allergies Seasonal Allergies: No Past Medical History Surgeries: Yes (ING hernia) Respiratory: No Cardiac: Yes Hypertension Neurological: No Genitourinary: No Gastrointestinal: No Musculoskeletal: No Endocrine: No HEENT: No Cancer: No Psychosocial: No Integumentary: No Blood Disorders: No Sepsis Event Evaluation Height, Weight, BMI Height: 5'10.00" Weight: 230lbs. 0.0oz. 104.344599jd; 31.00 BMI Method: Exam Exam Vital Signs Date Time Temp Pulse Resp B/P (MAP) Pulse Ox O2 Delivery O2 Flow Rate FiO2 08/17/20 13:09 Nasal Cannula 4.00 08/17/20 12:20 62 20 124/85 98 Nasal Cannula 4.00 08/17/20 08:43 36.5 74 18 135/86 (102) 95 08/17/20 08:40 95 Nasal Cannula 2.00 Height & Weight Height: 5'10.00" Weight: 230lbs. 0.0oz. 104.517125vg; 31.00 BMI Method: General Appearance: No Apparent Distress HEENT: PERRL/EOMI, TMs Normal, Normal ENT Inspection, Pharynx Normal, Moist Mucous Membranes Neck: Full Range of Motion, Normal Inspection, Non Tender Respiratory: Chest Non Tender, Lungs Clear, Normal Breath Sounds, No Accessory Muscle Use, No Respiratory Distress Cardiovascular: Regular Rate, Rhythm, No Edema, No Gallop, No JVD, No Murmur, Normal Peripheral Pulses Capillary Refill: Less Than 3 Seconds Peripheral Pulses: 2+ Radial Pulses (R), 2+ Radial Pulses (L) Gastrointestinal: normal bowel sounds, non tender, soft Extremity: Normal Capillary Refill, Normal Inspection, Normal Range of Motion, Non Tender, No Calf Tenderness, No Pedal Edema Neurologic/Psychiatric: Alert, Oriented x3, No Motor/Sensory Deficits, Normal Mood/Affect Skin: Normal Color, Warm/Dry Lymphatic: No Adenopathy Results Lab Laboratory Tests 08/17/20 08:40 Assessment/Plan Assessment/Plan COVID-19 -Decadron -Remdesivir, covalascent plasma -- Pt is aware these are EUA meds and consents to use. -Daily CMP -Awake proneing Dehydration -Conservative IVF Pneumonia with sepsis -Start rocephin and azithromycin -monitor Metabolic lactic acidosis -IVF Elevated LFTs -Monitor Acute renal failure -IVF -Monitor ADONAY BURGOS DO Aug 17, 2020 13:34
[2020-08-17] MEDS: LACTATED RINGERS 1,000 ML IV SCH ×3 (13:46→23:30)
[2020-08-17] MEDS ORDERED: ONDANSETRON 4 MG/2 ML (SDV) Z0FRAN ONE (14:19)
[2020-08-17] MEDS ORDERED: ONDANSETRON 4 MG/2 ML (SDV) Z0FRAN IVP PRN (14:30)
[2020-08-17] MEDS ORDERED: PROMETHAZINE INJ 25 MG/ML (PHENERGAN) AMP IM PRN ×2 (14:30→17:00)
[2020-08-17] MEDS ORDERED: morphine INJ 4 MG/ML 1 ML (VIAL/SYRINGE) IVP PRN (14:30)
[2020-08-17] MEDS ORDERED: PROMETHAZINE INJ 25 MG/ML (PHENERGAN) AMP IVP PRN (14:30)
[2020-08-17] MEDS ORDERED: REMDESIVIR INJ (NON-FORMULARY) 200 MG in NS (IVPB) 210 ML IV NR (15:00)
[2020-08-17] MEDS ORDERED: guaiFENesin/CODEINE (ROBITUSSIN AC) 10ML UDC PO PRN (16:00)
[2020-08-17] MEDS ORDERED: MELATONIN 3 MG TABLET PO PRN (17:00)
[2020-08-17] MEDS ORDERED: HYDROcodone/APAP 5 MG/325 MG (LORTAB) TAB PO PRN (17:00)
[2020-08-17] MEDS ORDERED: CALCIUM CARBONATE 500 MG (TUMS) TAB.CHEW PO PRN (17:00)
[2020-08-17] MEDS ORDERED: DOCUSATE SODIUM 100 MG (COLACE) CAP PO PRN (17:00)
[2020-08-17] MEDS ORDERED: ALPRAZolam 0.25 MG (XANAX) TAB PO PRN (17:00)
[2020-08-17] MEDS ORDERED: LOPERAMIDE 2 MG (IMODIUM) TABLET PO PRN (17:00)
[2020-08-17] MEDS ORDERED: diphenhydrAMINE 25 MG TAB (BENADRYL) PO PRN (17:00)
[2020-08-17] MEDS ORDERED: risperiDONE 1 MG (RisperDAL) TAB ONE (20:17)
[2020-08-17] MEDS ORDERED: SENNA W/DOCUSATE (SENOKOT S) TABLET ONE (20:17)
[2020-08-17] MEDS ORDERED: LACTATED RINGERS 1,000 ML IV ONE (20:17)
[2020-08-17] MEDS: risperiDONE 1 MG (RisperDAL) TAB PO SCH (20:45)
[2020-08-18] VITALS (10 sets, daily range): BP systolic 129–147; BP diastolic 74–84
[2020-08-18] MEDS: SENNA W/DOCUSATE (SENOKOT S) TABLET PO SCH ×3 (05:23→19:49)
[2020-08-18] MEDS: VASOPRESSIN INJECTION 20 UNIT in NS (IVPB) 100 ML IV SCH ×2 (05:23→05:25)
[2020-08-18] MEDS: NOREPINEPHRINE 4 MG/250 ML 250 ML IV SCH (05:23)
--- NOTE | 2020-08-18 05:26 | Progress Note - Hospitalist ---
Subjective HPI/CC On Admission Date Seen by Provider: Aug 18, 2020 Time Seen by Provider: 10:00 CC: SOB with nausea and vomiting HPI: This is a 71[facility]WM clinic pt of [facility] with a past medical history of hypertension who presents to the ER after severe nausea and vomiting after a diagnosis of Covid-19 last week. He is also becoming hypoxia and his CXR shows evidence of viral pneumonitis from Covid-19. At this current time pt is very anxious. He received some Ativan and at this current time Dr. Noyola has been consulted and will be managing him closely on cardiac step down. Subjective/Events-last exam Pt very disgruntled today Receiving Remdesivir and convalescent COVID-19 plasma Requiring oxygen Denies any pain Will transfer down to fourth floor, will try to wean oxygen and continue treatme nt and heplock IV fluid Review of Systems General: Fatigue, Malaise Pulmonary: Dyspnea Focused Exam Lactate Level 08/17/20 09:00: Lactic Acid Level 2.54*H 08/17/20 10:55: Lactic Acid Level 1.75 Time of Focused Exam: 10:02 Objective Exam Vital Signs Vital Signs Date Time Temp Pulse Resp B/P (MAP) Pulse Ox O2 Delivery O2 Flow Rate FiO2 08/19/20 03:11 94 Nasal Cannula 1.00 08/19/20 03:10 36.6 59 18 141/88 (105) Capillary Refill : Less Than 3 Seconds General Appearance: No Apparent Distress, WD/WN, Anxious, Chronically ill Respiratory: Chest Non Tender, Normal Breath Sounds, No Accessory Muscle Use, No Respiratory Distress, Decreased Breath Sounds Cardiovascular: Regular Rate, Rhythm, No Edema, No Gallop, No JVD, No Murmur, Normal Peripheral Pulses Neurologic/Psychiatric: Alert, Oriented x3, No Motor/Sensory Deficits, Normal Mood/Affect Results/Procedures Lab Laboratory Tests 08/19/20 02:46 Patient resulted labs reviewed. Assessment/Plan Assessment and Plan Assess & Plan/Chief Complaint Assessment: COVID-19 PNA Hypoxia N/V ARF Plan: COVID-19 protocol PICC line Monitor closely Diagnosis/Problems Diagnosis/Problems (1) COVID-19 Status: Acute (2) Intractable nausea and vomiting Status: Acute (3) Panic anxiety syndrome Status: Acute (4) Dehydration Status: Acute (5) Pneumonia Status: Acute Qualifiers: Pneumonia type: due to unspecified organism Laterality: bilateral Lung location: unspecified part of lung Qualified Codes: J18.9 - Pneumonia, unspecified organism (6) Sepsis Status: Acute Qualifiers: Sepsis type: sepsis due to unspecified organism Sepsis acute organ dysfunction status: with acute organ dysfunction Severe sepsis acute organ dysfunction type: acute respiratory failure Acute respiratory failure type: with hypoxia Severe sepsis shock status: without septic shock Qualified Codes: A41.9 - Sepsis, unspecified organism; R65.20 - Severe sepsis without septic shock; J96.01 - Acute respiratory failure with hypoxia Clinical Quality Measures DVT/VTE Risk/Contraindication: Risk Factor Score Per Nursin RFS Level Per Nursing on Admit: 3=High DAVIS CRUZ DO Aug 18, 2020 05:26
[2020-08-18] MEDS ORDERED: LACTATED RINGERS 1,000 ML IV ONE ×2 (05:47→15:01)
[2020-08-18] MEDS: LACTATED RINGERS 1,000 ML IV SCH (06:14)
--- NOTE | 2020-08-18 06:57 | NUR ---
laboratory staff unable to obtain blood for lab draw. This RN attempted to draw from IV line, unable to pull blood. Dr. Noyola aware.
--- NOTE | 2020-08-18 07:10 | Pulmonary Progress Note ---
Subjective Time Seen by a Provider: 07:08 Sepsis Event Evaluation Height, Weight, BMI Height: 5'10.00" Weight: 230lbs. 0.0oz. 104.752050ha; 31.00 BMI Method: Focused Exam Lactate Level 08/17/20 09:00: Lactic Acid Level 2.54*H 08/17/20 10:55: Lactic Acid Level 1.75 Time of Focused Exam: 10:02 Exam Exam Vital Signs Date Time Temp Pulse Resp B/P (MAP) Pulse Ox O2 Delivery O2 Flow Rate FiO2 08/18/20 04:30 37.7 62 18 143/84 (103) 95 Nasal Cannula 2.00 08/18/20 04:30 95 Nasal Cannula 2.00 08/18/20 01:00 55 08/18/20 00:00 95 Nasal Cannula 2.00 08/17/20 23:42 Nasal Cannula 2.00 08/17/20 23:27 36.8 55 20 129/82 (98) 95 Nasal Cannula 2.00 08/17/20 21:00 94 Nasal Cannula 2.00 08/17/20 20:43 37.6 56 20 124/74 (91) 94 Nasal Cannula 2.00 08/17/20 20:00 95 Nasal Cannula 2.00 08/17/20 19:00 70 08/17/20 16:00 58 14 145/85 (105) 96 Nasal Cannula 4.00 08/17/20 15:58 36.6 08/17/20 15:57 Nasal Cannula 2.00 08/17/20 15:00 64 23 162/135 (144) 94 Nasal Cannula 4.00 08/17/20 14:00 70 55 196/123 (147) 97 Nasal Cannula 4.00 08/17/20 13:09 Nasal Cannula 4.00 08/17/20 13:00 63 30 131/91 (104) 96 Nasal Cannula 4.00 08/17/20 12:30 36.8 67 22 146/86 (106) 95 Nasal Cannula 4.00 08/17/20 12:27 64 08/17/20 12:20 62 20 124/85 98 Nasal Cannula 4.00 08/17/20 08:43 36.5 74 18 135/86 (102) 95 08/17/20 08:40 95 Nasal Cannula 2.00 I & O 08/18/20 07:00 Intake Total 4060 ml Output Total 650 ml Balance 3410 ml Height & Weight Height: 5'10.00" Weight: 230lbs. 0.0oz. 104.237340bg; 31.00 BMI Method: General Appearance: No Apparent Distress HEENT: PERRL/EOMI, TMs Normal, Normal ENT Inspection, Pharynx Normal, Moist Mucous Membranes Neck: Full Range of Motion, Normal Inspection, Non Tender Respiratory: Chest Non Tender, Lungs Clear, Normal Breath Sounds, No Accessory Muscle Use, No Respiratory Distress Cardiovascular: Regular Rate, Rhythm, No Edema, No Gallop, No JVD, No Murmur, Normal Peripheral Pulses Capillary Refill: Less Than 3 Seconds Peripheral Pulses: 2+ Radial Pulses (R), 2+ Radial Pulses (L) Gastrointestinal: normal bowel sounds, non tender, soft Extremity: Normal Capillary Refill, Normal Inspection, Normal Range of Motion, Non Tender, No Calf Tenderness, No Pedal Edema Neurologic/Psychiatric: Alert, Oriented x3, No Motor/Sensory Deficits, Normal Mood/Affect Skin: Normal Color, Warm/Dry Lymphatic: No Adenopathy Results Lab Laboratory Tests 08/17/20 08:40 Assessment/Plan Assessment/Plan COVID-19 -Decadron -Remdesivir, covalascent plasma -- Pt is aware these are EUA meds and consents to use. -Daily CMP -Awake proneing -Pt is a difficult stick. Lab was unable to obtain blood. -Will order PICC line Dehydration - improved -Decrease IVF and obtain labs -Conservative IVF Pneumonia with sepsis -Start rocephin and azithromycin -monitor Agitation -Morphine, Risperadol viral gastritis with nausea -Improved Metabolic lactic acidosis -IVF Elevated LFTs -Monitor Acute renal failure -IVF -Monitor ADONAY BURGOS DO Aug 18, 2020 07:10
[2020-08-18] MEDS ORDERED: AZITHROMYCIN 500 MG/NS 250 ML IVPB IV SCH ×2 (09:00)
[2020-08-18] MEDS ORDERED: PANTOPRAZOLE 40 MG (PROTONIX) VIAL IV SCH (09:00)
[2020-08-18] MEDS ORDERED: AZITHROMYCIN INJECTION 250 MG in NS (IVPB) 250 ML IV SCH (09:00)
[2020-08-18] MEDS ORDERED: WATER (STERILE) FOR INJECTION 10 ML ONE (09:48)
[2020-08-18] MEDS ORDERED: cefTRIAXone 1,000 MG IV (ROCEPHIN) VIAL ONE (09:48)
[2020-08-18] MEDS ORDERED: risperiDONE 1 MG (RisperDAL) TAB ONE (09:52)
[2020-08-18] MEDS: cefTRIAXone 1,000 MG/SWFI 10 ML IV PUSH IV SCH ×2 (10:13)
[2020-08-18] MEDS: amLODIPine 5 MG (NORVASC) TAB PO SCH (10:26)
[2020-08-18] MEDS: risperiDONE 1 MG (RisperDAL) TAB PO SCH ×2 (10:26→19:49)
[2020-08-18] MEDS: ENOXAPARIN 40 MG/0.4 ML (LOVENOX) SYR SC SCH (10:53)
--- NOTE | 2020-08-18 11:09 | Diagnostic Imaging Report ---
EXAMINATION: Portable erect AP chest at 1040 AM INDICATION: PICC line insertion In the interval since the exam performed on 08/17/2020, right-sided PIC line has been inserted. The tip of the line overlies the midportion of the superior vena cava and seems to be in good position. There is no sign of a pneumothorax. The overall appearance of the chest itself does not seem to have changed significantly. The heart is stable. There are still alveolar/interstitial infiltrates involving both lung bases, particularly the right lung base. Most likely, these findings are due to pneumonia/atelectasis. IMPRESSION: 1. There has been interval insertion of a right-sided PICC line without apparent complication. 2. There is persistent involvement of the lung bases by pneumonia/atelectasis. A follow-up exam would be recommended for continued evaluation. Dictated by: Dictated on workstation # [id number]
[2020-08-18] MEDS ORDERED: NS (IVPB) 250 ML ONE (15:00)
[2020-08-18] MEDS ORDERED: REMDESIVIR INJ (NON-FORMULARY) 100 MG in NS (IVPB) 230 ML IV SCH (15:00)
[2020-08-19 02:51] VITALS: BP 141/88
[2020-08-19 03:03] LABS: BASOPHILS % (AUTO) 0 % (0-10); EOSINOPHILS % (AUTO) 0 % (0-10); HEMATOCRIT 34 % (40-54); HEMOGLOBIN 11.6 g/dL (13.3-17.7); LYMPHOCYTES # (AUTO) 1.8 10^3/uL (1.0-4.0); LYMPHOCYTES % (AUTO) 15 % (12-44); MEAN CORPUSCULAR HEMOGLOBIN 32 pg (25-34); MEAN CORPUSCULAR HGB CONC 34 g/dL (32-36); MEAN CORPUSCULAR VOLUME 92 fL (80-99); MEAN PLATELET VOLUME 10.9 fL (9.0-12.2); MONOCYTES # (AUTO) 0.8 10^3/uL (0.0-1.0); MONOCYTES % (AUTO) 7 % (0-12); NEUTROPHILS # (AUTO) 9.2 10^3/uL (1.8-7.8); NEUTROPHILS % (AUTO) 76 % (42-75); PLATELET COUNT 283 10^3/uL (130-400); WHITE BLOOD COUNT 12.1 10^3/uL (4.3-11.0)
[2020-08-19 03:10] VITALS: BP 141/88
[2020-08-19 03:15] LABS: ALBUMIN 3.4 GM/DL (3.2-4.5); CHLORIDE 106 MMOL/L (98-107); POTASSIUM 4.3 MMOL/L (3.6-5.0); SODIUM 136 MMOL/L (135-145)
[2020-08-19 03:16] LABS: CALCIUM 8.2 MG/DL (8.5-10.1)
[2020-08-19 03:17] LABS: GLUCOSE 101 MG/DL (70-105)
[2020-08-19 03:18] LABS: TOTAL PROTEIN 6.1 GM/DL (6.4-8.2)
[2020-08-19 03:19] LABS: BILIRUBIN,TOTAL 0.4 MG/DL (0.1-1.0); CARBON DIOXIDE 22 MMOL/L (21-32)
[2020-08-19 03:21] LABS: ALKALINE PHOSPHATASE 54 U/L (40-136); GFR ESTIMATED > 60
[2020-08-19 03:22] LABS: BUN/CREATININE RATIO 19
[2020-08-19 03:24] LABS: ALANINE AMINOTRANSFERASE 83 U/L (0-55)
[2020-08-19 08:00] VITALS: BP 146/77
[2020-08-19] MEDS ORDERED: AZITHROMYCIN 250 MG TAB (ZITHROMAX) PO SCH (09:00)
[2020-08-19] MEDS ORDERED: PANTOPRAZOLE 40 MG (PROTONIX) TAB PO SCH (09:00)
[2020-08-19] MEDS ORDERED: dexAMETHasone 6 MG TAB (DECADRON) PO SCH (09:00)
[2020-08-19] MEDS ORDERED: WATER (STERILE) FOR INJECTION 10 ML ONE (09:07)
[2020-08-19] MEDS ORDERED: cefTRIAXone 1,000 MG IV (ROCEPHIN) VIAL ONE (09:07)
[2020-08-19] MEDS: amLODIPine 5 MG (NORVASC) TAB PO SCH (09:21)
[2020-08-19] MEDS: SENNA W/DOCUSATE (SENOKOT S) TABLET PO SCH (09:22)
[2020-08-19] MEDS: ENOXAPARIN 40 MG/0.4 ML (LOVENOX) SYR SC SCH (09:22)
[2020-08-19] MEDS: risperiDONE 1 MG (RisperDAL) TAB PO SCH (09:22)
[2020-08-19] MEDS: cefTRIAXone 1,000 MG/SWFI 10 ML IV PUSH IV SCH ×2 (09:22)
[2020-08-19] MEDS ORDERED: ALBU18HF2 IH (11:14)
[2020-08-19] MEDS ORDERED: CEFD300C3 PO (11:14)
[2020-08-19] MEDS ORDERED: ALPR.25T PO (11:14)
[2020-08-19] MEDS ORDERED: GUAI473L29 PO (11:14)
[2020-08-19] MEDS ORDERED: DEXA6TAB PO (11:14)
--- NOTE | 2020-08-19 11:15 | Discharge Summary ---
Discharge Summary Hospital Course Was the Problem List Reviewed?: Yes Problems/Dx: (1) COVID-19 Status: Acute (2) Intractable nausea and vomiting Status: Acute (3) Panic anxiety syndrome Status: Acute (4) Dehydration Status: Acute (5) Pneumonia Status: Acute Qualifiers: Qualified Codes: J18.9 - Pneumonia, unspecified organism (6) Sepsis Status: Acute Qualifiers: Qualified Codes: A41.9 - Sepsis, unspecified organism; R65.20 - Severe sepsis without septic shock; J96.01 - Acute respiratory failure with hypoxia Hospital Course Date of Admission: Aug 17, 2020 at 10:31 Admission Diagnosis : Family Physician/Provider: Miladis Pickett DO Date of Discharge: 08/19/20 Discharge Diagnosis: COVID-19 PNA, Hypoxia, N/V, ARF Hospital Course: Patient had a standard course after admitted with N/V and ARF from COVID-19. O2 maintained and convalescent plasma and Remdesivir given with good results. PICC line placed due to poor access. Patient was resistant to treatment from admit but able to tolerate until safe to DC and was sent home in improved condition. Labs and Pending Lab Test: Laboratory Tests 08/19/20 02:46: White Blood Count 12.1H, Red Blood Count 3.68L, Hemoglobin 11.6#L, Hematocrit 34L, Mean Corpuscular Volume 92, Mean Corpuscular Hemoglobin 32, Mean Corpuscular Hemoglobin Concent 34, Red Cell Distribution Width 12.9, Platelet Count 283, Mean Platelet Volume 10.9, Immature Granulocyte % (Auto) 3, Neutrophils (%) (Auto) 76H, Lymphocytes (%) (Auto) 15, Monocytes (%) (Auto) 7, Eosinophils (%) (Auto) 0, Basophils (%) (Auto) 0, Neutrophils # (Auto) 9.2H, Lymphocytes # (Auto) 1.8, Monocytes # (Auto) 0.8, Eosinophils # (Auto) 0.0, Basophils # (Auto) 0.0, Immature Granulocyte # (Auto) 0.3H, Sodium Level 136, Potassium Level 4.3, Chloride Level 106, Carbon Dioxide Level 22, Anion Gap 8, Blood Urea Nitrogen 19H, Creatinine 1.00, Estimat Glomerular Filtration Rate > 60, BUN/Creatinine Ratio 19, Glucose Level 101, Calcium Level 8.2L, Corrected Calcium 8.7, Total Bilirubin 0.4, Aspartate Amino Transf (AST/SGOT) 29, Alanine Aminotransferase (ALT/SGPT) 83H, Alkaline Phosphatase 54, Total Protein 6.1L, Albumin 3.4 Microbiology 08/17/20 Blood Culture - Preliminary, Resulted No growth Home Meds Active Cefdinir 300 Mg Capsule 300 Mg PO BID Dexamethasone 6 Mg Tablet 6 Mg PO DAILY Ventolin Hfa (Albuterol Sulfate) 18 Gm Hfa.aer.ad 0 Gm IH Q6H PRN Reported Aspirin 81 Mg Tab.chew 81 Mg PO DAILY Red Yeast Rice 600 Mg Tablet 600 Mg PO DAILY Fish Oil 1,000 mg Capsule ([place] 3 Polyunsat Fatty Acids) 1,000 Mg Cap 1,000 Mg PO DAILY Multivitamins (Multivitamin) 1 Each Capsule 1 Each PO DAILY Vitamin C (Ascorbic Acid) 500 Mg Tablet 500 Mg PO DAILY Amlodipine Besylate 5 Mg Tablet 5 Mg PO DAILY Assessment/Pt Instructions Dr Pickett Discharge Planning: <30 minutes discharge planning Discharge Instructions Discharge Diet: No Restrictions Discharge Physical Examination Vital Signs Vital Signs Date Time Temp Pulse Resp B/P (MAP) Pulse Ox O2 Delivery O2 Flow Rate FiO2 08/19/20 09:00 93 Room Air 08/19/20 08:00 36.8 71 16 146/77 (100) 08/19/20 07:44 1.00 General Appearance: No Apparent Distress, WD/WN Respiratory: Chest Non Tender, Lungs Clear, Normal Breath Sounds, No Accessory Muscle Use, No Respiratory Distress, Decreased Breath Sounds Cardiovascular: Regular Rate, Rhythm, No Edema, No Gallop, No JVD, No Murmur, Normal Peripheral Pulses Neurologic/Psychiatric: Alert, Oriented x3, No Motor/Sensory Deficits, Normal Mood/Affect Allergies: Coded Allergies: No Known Drug Allergies (Verified , 03/28/17) Discharge Summary Date of Admission Aug 17, 2020 at 10:31 Date of Discharge Discharge Date: Aug 19, 2020 Admission Diagnosis Assessment: COVID-19 pneumonia Hypoxia Acute renal failure Profound dehydration Nausea and vomiting Hypertension Plan: IV fluids ICU-3 Dr. Noyola consult Monitor oxygen level Discharge Diagnosis Assessment: COVID-19 PNA Hypoxia N/V ARF Plan: COVID-19 protocol PICC line Monitor closely (1) COVID-19 Status: Acute (2) Intractable nausea and vomiting Status: Acute (3) Panic anxiety syndrome Status: Acute (4) Dehydration Status: Acute (5) Pneumonia Status: Acute Qualifiers: Qualified Codes: J18.9 - Pneumonia, unspecified organism (6) Sepsis Status: Acute Qualifiers: Qualified Codes: A41.9 - Sepsis, unspecified organism; R65.20 - Severe sepsis without septic shock; J96.01 - Acute respiratory failure with hypoxia Clinical Quality Measures DVT/VTE Risk/Contraindication: Risk Factor Score Per Nursin RFS Level Per Nursing on Admit: 3=High MILADIS PICKETT DO Aug 19, 2020 11:15
== END 2020-08-19 14:15 | disposition home or self-care (01) | DRG 871 ==
LOC: EDUNIT# 08:24 → ER 08:25 → ICU 10:31 → CSD 19:47
PROVIDERS: ADMIT Internal Medicine; ATTEND Internal Medicine
PROC: 02HV33Z Insertion of Infusion Device into Superior Vena Cava, Percutaneous Approach (ICD-10-PCS; principal; 2020-08-17)
DX: A41.89 Other specified sepsis (principal); U07.1 COVID-19; J12.89 Other viral pneumonia; N17.9 Acute kidney failure, unspecified; R09.02 Hypoxemia; E86.0 Dehydration; I10 Essential (primary) hypertension; F41.0 Panic disorder [episodic paroxysmal anxiety]; R65.20 Severe sepsis without septic shock
CPT/HCPCS: 36415; 36569; 71045; 76937; 80053; 82728; 82805; 83605; 83735; 84100; 84145; 84484; 85007; 85025; 85027; 85379; 85610; 85730; 86141; 86900; 86901; 87040; 87449; 87899; 93005; 93041

== ENCOUNTER → 2023-01-15 | Outpatient (CLI) | payer MEDICARE ==
[~2023-01-15] MED LIST changes: +ALBU18HF2 IH; +ALPR.25T PO; +AMLO-250 PO; -AMLO5TAB9 PO; +CEFD300C3 PO; +DEXA6TAB PO; +GFCD10B PO
--- NOTE | 2023-01-15 09:47 | Diagnostic Imaging Report ---
PROCEDURE: US carotid duplex, bilateral. TECHNIQUE: Multiple real-time grayscale images were obtained over the carotid arteries in various projections, bilaterally. Additional spectral analysis and color Doppler duplex images were also obtained. INDICATION: Peripheral vascular disease Grayscale images show atherosclerotic plaque at both carotid bifurcations. The velocities and waveforms in the right carotid bifurcation unremarkable. There is some velocity acceleration the left proximal internal carotid artery suggesting stenosis of approximately 65%. Both vertebral arteries are patent with antegrade flow. IMPRESSION: Moderate stenosis left internal carotid artery. There is atherosclerotic change present in both carotid bifurcations. Parameters based on the consensus panel Villegas-Scale and Doppler ultrasound criteria published September 2003, Radiology, Volume 229. DOPPLER (peak systolic velocity M/S Right Left CCA .99 .76 ICA Proximal .67 1.2 ICA Mid .70 1.9 ICA Distal .98 .86 RATIO .99 2.5 ECA .73 .69 VERT .35 .47 Dictated by: Dictated on workstation # [id number]
== END ==
LOC: RAD 08:40
PROVIDERS: ATTEND Internal Medicine
DX: I65.23 Occlusion and stenosis of bilateral carotid arteries (principal)
CPT/HCPCS: 93880

== ENCOUNTER 2023-04-10 05:36 | Outpatient (CLI) | payer MEDICARE ==
[~2023-04-10] VITALS: Ht 177.8 cm; Wt 104.4 kg
[2023-04-10] MEDS ORDERED: ASPI325T32 PO (14:41)
== END 2023-04-10 14:44 ==
LOC: PREOP 05:36
PROVIDERS: ATTEND Surgery
DX: Z01.818 Encounter for other preprocedural examination (principal); Z12.11 Encounter for screening for malignant neoplasm of colon

== ENCOUNTER 2023-04-23 07:59 | Day surgery (SDC) | payer MEDICARE ==
[~2023-04-23] VITALS: Ht 177.8 cm; Wt 104.4 kg
[~2023-04-23 07:59] MED LIST changes: +ASPI325T32 PO
[2023-04-23] MEDS ORDERED: LACTATED RINGERS 1,000 ML IV STA (08:03)
[2023-04-23 08:38] VITALS: BP 164/97
[2023-04-23] MEDS ORDERED: MIDAZOLAM 2 MG/2 ML (VERSED) VIAL ONE (09:35)
[2023-04-23] MEDS ORDERED: PROPOFOL INJECTION 50 ML IV ONE (09:35)
[2023-04-23 10:10] VITALS: BP 117/71
--- NOTE | 2023-04-23 10:10 | Progress Note-Post Operative ---
Post-Operative Progess Note Surgeon (s)/Saw Cleaner (s) Surgeon PHUONG CRESPO DO Saw Cleaner: na Pre-Operative Diagnosis family history colon cancer Post-Operative Diagnosis colon polyps, diverticulosis Procedure & Operative Findings Date of Procedure 04/23/23 Procedure Performed/Findings colonoscopy c cold biopsy polypectomy and hot bx polypectomy Anesthesia Type per cytogeneticist Estimated Blood Loss Estimated blood loss (mL): none Specimens/Packing Specimens Removed colon polyps PHUONG CRESPO DO April 23, 2023 10:10
--- NOTE | 2023-04-23 10:11 | Discharge Inst-Simple/Standard ---
Discharge Inst-Standard Patient Instructions/Follow Up Plan of Care/Instructions/FU: 2 weeks [place] Activity as Tolerated: Yes Discharge Diet: Regular Diet (high fiber) PHUONG CRESPO DO April 23, 2023 10:11
[2023-04-23 10:15] VITALS: BP 117/72
[2023-04-23 10:20] VITALS: BP 119/70
[2023-04-23 10:38] VITALS: BP 119/70
--- NOTE | 2023-04-23 14:38 | Anesthesia-General Post-Op ---
MAC Patient Condition Mental Status/LOC: Same as Preop Cardiovascular: Satisfactory Nausea/Vomiting: Absent Respiratory: Satisfactory Pain: Controlled Complications: Absent Post Op Complications Complications None Follow Up Care/Instructions Patient Instructions None needed. Anesthesiology Discharge Order Discharge Order Patient is doing well, no complaints, stable vital signs, no apparent adverse anesthesia problems. No complications reported per nursing. QUIQUE SAEED CRNA April 23, 2023 14:38
--- NOTE | 2023-04-23 16:15 | OPERATIVE REPORT ---
DATE OF SERVICE: 04/23/2023 PREOPERATIVE DIAGNOSIS: Family history of colon cancer. POSTOPERATIVE DIAGNOSES: Colon polyps, diverticulosis. PROCEDURE: Colonoscopy with cold biopsy polypectomy and hot biopsy polypectomy. SURGEON: Phuong Bedoya DO ANESTHESIA: Per PROGRAM ARRANGER. ESTIMATED BLOOD LOSS: None. COMPLICATIONS: None. INDICATIONS: The patient is a 67-year-old male with family history of colon cancer. He understands risks and benefits of procedure and wishes to proceed. Consent was signed in chart. DESCRIPTION OF PROCEDURE: The patient was taken to endoscopy suite, placed in left lateral recumbent position. Timeout was performed. Digital rectal exam was performed. No palpable polyps, masses or ulcerations. Scope was inserted in the rectum, advanced all the way to the cecum with minimal difficulty. Prep was adequate. Scope was slowly retracted back. No polyps, masses or ulcerations in the cecum. In the ascending colon, very small polyp was present, which cold biopsy polypectomy was performed. Scope was then continued to be slowly retracted back. Another polyp in the transverse colon, which hot biopsy polypectomy was performed. Scope was then continuously retracted back. No polyps, masses or ulcerations in the transverse, descending and sigmoid colon. Left colon had some diverticulosis present. Once in the rectum, scope was retroflexed noting no other pathology. Scope was returned to its normal position, slowly withdrawn until completely removed. The patient tolerated the procedure well without complications, taken to recovery room in stable condition. RECOMMENDATIONS: The patient will need repeat colonoscopy in 5 years. Any issues before that, be seen at that time. We would recommend high fiber diet due to diverticulosis. We will follow up on pathology in 2 weeks. Job ID: [id number] DocumentID: [id number] Dictated Date: 04/23/2023 10:09:52 Real Estate Sales Manager Date: 04/23/2023 16:13:00 Dictated By: PHUONG BEDOYA DO
== END 2023-04-23 10:47 | disposition home or self-care (01) ==
LOC: ENDO 07:59
PROVIDERS: ATTEND Surgery
DX: Z12.11 Encounter for screening for malignant neoplasm of colon (principal); D12.2 Benign neoplasm of ascending colon; D12.3 Benign neoplasm of transverse colon; K57.30 Diverticulosis of large intestine without perforation or abscess without bleeding; Z80.0 Family history of malignant neoplasm of digestive organs; Z79.02 Long term (current) use of antithrombotics/antiplatelets